=== PATIENT | female | born 1995 | race Caucasian/White ===

== ENCOUNTER → 2016-11-19 | Outpatient (CLI) | payer OTHER ==
--- NOTE | 2016-11-19 09:55 | RAD ---
Examination: 2 views of the bilateral hips with frontal view of the pelvis History: History of bilateral hip pain, prior history of surgery Comparison: None available Findings: The bilateral femoral heads are within the acetabula. Mild joint space loss identified in the bilateral hip joints likely degeneration. Small bony density identified just superior to the right acetabulum probably soft tissue calcification likely chronic. Intrauterine contraceptive device projects in the pelvis Impression: 1. Mild degenerative changes bilateral hip joints. 2. Small bony density identified just superior to the right acetabulum probably soft tissue calcification likely chronic. If pain persists MRI may be useful.
== END | disposition home or self-care (01) ==
LOC: DXRADRC 09:10
PROVIDERS: ATTEND Orthopaedic Surgery Sports Medicine
DX: M16.0 Bilateral primary osteoarthritis of hip (principal); Z97.5 Presence of (intrauterine) contraceptive device
CPT/HCPCS: 73521

== ENCOUNTER 2017-01-07 20:32 | Emergency (ER) | payer OTHER ==
[~2017-01-07] VITALS: Ht 177.8 cm; Wt 77.1 kg
[2017-01-07 21:00] VITALS: BP 127/79
[2017-01-07] MEDS ORDERED: ONDANSETRON PF 4 MG/2 ML VIAL. ONE (23:11)
[2017-01-07] MEDS ORDERED: KETOROLAC 30 MG/ML VIAL. ONE (23:11)
[2017-01-07 23:41] LABS: BACTERIA,URINE 0 /HPF (0-FEW); BILIRUBIN,URINE NEG (NEG); CLARITY,URINE CLEAR; COLOR,URINE YELLOW; GLUCOSE,URINE NEG (NEG); NITRITE,URINE NEG (NEG); RBC,URINE 0 /HPF (0-2); SQUAMOUS EPITHELIAL CELL,UR OCC /LPF; UROBILINOGEN,URINE 0.2 mg/dL (0.2 mg/dL); WBC,URINE RARE /HPF (0-4)
[2017-01-07] MEDS ORDERED: ONDANSETRON ODT 4 MG TAB.RAPDIS PO ONE (23:45)
[2017-01-07] MEDS ORDERED: KETOROLAC 60 MG/2 ML VIAL. IM ONE (23:45)
--- NOTE | 2017-01-07 23:46 | RAD ---
Pelvic ultrasound 01/07/2017 INDICATION: Pelvic pain and bleeding for one month. COMPARISON: None available TECHNIQUE: Multiple sonographic images of the pelvis were obtained utilizing transabdominal and transvaginal imaging. Grayscale, color Doppler and spectral waveform analysis were utilized. FINDINGS: The uterus measures 9.5 x 4.9 x 3.9 cm. No suspicious uterine masses are identified. Endometrium is within normal limits measuring 3.5 mm. IUD is present. Right ovary measures 4.2 x 2.1 x 2.5 cm. Normal follicular changes are present. There is arterial and venous waveform identified within the right ovary at the time of imaging. The left ovary measures 4.5 x 2.7 x 2.7 cm. Normal follicular changes are present. Arterial and venous waveform identified within the left ovary at the time of imaging. There is no free fluid within the pelvis. IMPRESSION: Nonenlarged ovaries with perfusion identified bilaterally. Uterus is within normal limits with an IUD present. Electronically signed by: Aby Pickard MD (01/07/2017 11:43 PM) [facility]
[2017-01-08 00:03] LABS: BASO # 0.1 x10^3/uL (0.0-0.2); BASO % 1 % (0-3); EOS # 0.2 x10^3/uL (0.0-0.7); EOS % 2 % (0-3); HEMATOCRIT 41.1 % (36.0-47.0); HEMOGLOBIN 14.2 g/dL (12.0-15.5); LYMPH % 42 % (24-48); MEAN CORPUSCULAR HEMOGLOBIN 31 pg (25-35); MEAN CORPUSCULAR HGB CONC 35 g/dL (31-37); MEAN CORPUSCULAR VOLUME 90 fL (79-100); MONO # 0.7 x10^3/uL (0.0-1.1); MONO % 8 % (0-9); NEUT # 4.5 x10^3uL (1.8-7.7); NEUT % 48 % (31-73); PLATELET COUNT 229 x10^3/uL (140-400); RED BLOOD COUNT 4.58 x10^6/uL (3.50-5.40); RED CELL DISTRIBUTION WIDTH 12.8 % (11.5-14.5); WHITE BLOOD COUNT 9.5 x10^3/uL (4.0-11.0)
[2017-01-08 00:17] LABS: ALBUMIN 3.9 g/dL (3.4-5.0); CALCIUM 9.1 mg/dL (8.5-10.1); CREATININE 0.9 mg/dL (0.6-1.0); GFR 77.6; POTASSIUM 4.3 mmol/L (3.5-5.1); TOTAL BILIRUBIN 0.5 mg/dL (0.2-1.0); TOTAL PROTEIN 7.9 g/dL (6.4-8.2)
[2017-01-08] MEDS ORDERED: KETOROLAC 30 MG/ML VIAL. IV ONE (00:45)
[2017-01-08] MEDS ORDERED: ONDANSETRON PF 4 MG/2 ML VIAL. IV ONE (00:45)
[2017-01-08] MEDS ORDERED: ONDA4TAB10 SL (00:50)
[2017-01-08] MEDS ORDERED: IBUP800T19 PO (00:50)
--- NOTE | 2017-01-08 00:50 | PHYS DOC ---
Adult General Chief Complaint Chief Complaint: ABDOMINAL PAIN HPI HPI Patient is a 21 year old female who presents with vaginal bleeding. The patient reports bleeding for nearly 1 month. States she uses tampons, sometimes changing hourly. She reports cramping lower abdominal pain. She denies fevers/chills, nausea/vomiting, diarrhea, dysuria, vaginal discharge. Denies shortness of breath, lightheadedness, syncope. She reports history of irregular periods & heavy bleeding, has mirena IUD but has not helped with bleeding. She was referred to a personal lines agent but does not have an appointment yet. Review of Systems Review of Systems Constitutional: Denies fever or chills HENT: Denies nasal congestion or sore throat Respiratory: Denies cough or shortness of breath Cardiovascular: Denies chest pain GI: Denies abdominal pain, nausea, vomiting : Reports vaginal bleeding. Musculoskeletal: Denies back pain or joint pain Integument: Denies rash Neurologic: Denies headache All other systems were reviewed and found to be within normal limits, except as documented in this note. Current Medications Current Medications Current Medications Medications (Trade) Dose Ordered Sig/Vito Start Time Stop Time Status Last Admin Dose Admin Ketorolac Tromethamine (Toradol) 30 mg 1X ONCE 01/08/17 00:45 01/08/17 00:46 UNV 01/07/17 23:50 30 MG Ondansetron HCl (Zofran Odt) 4 mg 1X ONCE 01/07/17 23:45 01/08/17 00:42 DC Ondansetron HCl (Zofran) 4 mg 1X ONCE 01/08/17 00:45 01/08/17 00:46 UNV 01/07/17 23:50 4 MG Allergies Allergies Allergies Coded Allergies Type Severity Reaction Last Updated Verified Penicillins Allergy Unknown 01/07/17 Yes Physical Exam Physical Exam Constitutional: Well developed, well nourished, no acute distress, non-toxic appearance. HENT: Normocephalic, atraumatic, bilateral external ears normal, oropharynx moist, nose normal. Eyes: conjunctiva normal, no discharge. Cardiovascular: RRR, no murmurs, no edema. Lungs & Thorax: LCTAB, no wheezing, no respiratory distress. Abdomen: soft, bilateral lower quadrant abdominal tenderness without rebound/ guarding, no masses/pulsatile masses, nondistended. Skin: Warm, dry, no erythema, no rash. Back: No CVA tenderness. Extremities: No tenderness, no edema. Neurologic: Alert and oriented X 3 Current Patient Data Lab Results Laboratory Tests Test 01/07/17 23:15 01/07/17 23:40 01/08/17 00:31 Urine Collection Type Unknown Urine Color Yellow Urine Clarity Clear Urine pH 7.0 Urine Specific [place] 1.020 Urine Protein Neg (NEG-TRACE) Urine Glucose (UA) Neg mg/dL (NEG) Urine Ketones (Stick) Trace mg/dL (NEG) Urine Blood Neg (NEG) Urine Nitrite Neg (NEG) Urine Bilirubin Neg (NEG) Urine Urobilinogen Dipstick 0.2 mg/dL (0.2 mg/dL) Urine Leukocyte Esterase Neg (NEG) Urine RBC 0 /HPF (0-2) Urine WBC Rare /HPF (0-4) Urine Squamous Epithelial Cells Occ /LPF Urine Bacteria 0 /HPF (0-FEW) White Blood Count 9.5 x10^3/uL (4.0-11.0) Red Blood Count 4.58 x10^6/uL (3.50-5.40) Hemoglobin 14.2 g/dL (12.0-15.5) Hematocrit 41.1 % (36.0-47.0) Mean Corpuscular Volume 90 fL (79-100) Mean Corpuscular Hemoglobin 31 pg (25-35) Mean Corpuscular Hemoglobin Concent 35 g/dL (31-37) Red Cell Distribution Width 12.8 % (11.5-14.5) Platelet Count 229 x10^3/uL (140-400) Neutrophils (%) (Auto) 48 % (31-73) Lymphocytes (%) (Auto) 42 % (24-48) Monocytes (%) (Auto) 8 % (0-9) Eosinophils (%) (Auto) 2 % (0-3) Basophils (%) (Auto) 1 % (0-3) Neutrophils # (Auto) 4.5 x10^3uL (1.8-7.7) Lymphocytes # (Auto) 4.0 x10^3/uL (1.0-4.8) Monocytes # (Auto) 0.7 x10^3/uL (0.0-1.1) Eosinophils # (Auto) 0.2 x10^3/uL (0.0-0.7) Basophils # (Auto) 0.1 x10^3/uL (0.0-0.2) Sodium Level 140 mmol/L (136-145) Potassium Level 4.3 mmol/L (3.5-5.1) Chloride Level 103 mmol/L (98-107) Carbon Dioxide Level 29 mmol/L (21-32) Anion Gap 8 (6-14) Blood Urea Nitrogen 15 mg/dL (7-20) Creatinine 0.9 mg/dL (0.6-1.0) Estimated GFR (Cockcroft-Gault) 77.6 BUN/Creatinine Ratio 17 (6-20) Glucose Level 79 mg/dL (70-99) Calcium Level 9.1 mg/dL (8.5-10.1) Total Bilirubin 0.5 mg/dL (0.2-1.0) Aspartate Amino Transferase (AST) 19 U/L (15-37) Alanine Aminotransferase (ALT) 24 U/L (14-59) Alkaline Phosphatase 67 U/L (46-116) Total Protein 7.9 g/dL (6.4-8.2) Albumin 3.9 g/dL (3.4-5.0) Albumin/Globulin Ratio 1.0 (1.0-1.7) POC Urine HCG, Qualitative hcg negative (Negative) EKG EKG [] Radiology/Procedures Radiology/Procedures PROCEDURE: US PELVIS W/TV Pelvic ultrasound 01/07/2017 INDICATION: Pelvic pain and bleeding for one month. COMPARISON: None available TECHNIQUE: Multiple sonographic images of the pelvis were obtained utilizing transabdominal and transvaginal imaging. Grayscale, color Doppler and spectral waveform analysis were utilized. FINDINGS: The uterus measures 9.5 x 4.9 x 3.9 cm. No suspicious uterine masses are identified. Endometrium is within normal limits measuring 3.5 mm. IUD is present. Right ovary measures 4.2 x 2.1 x 2.5 cm. Normal follicular changes are present. There is arterial and venous waveform identified within the right ovary at the time of imaging. The left ovary measures 4.5 x 2.7 x 2.7 cm. Normal follicular changes are present. Arterial and venous waveform identified within the left ovary at the time of imaging. There is no free fluid within the pelvis. IMPRESSION: Nonenlarged ovaries with perfusion identified bilaterally. Uterus is within normal limits with an IUD present. Electronically signed by: Seamus Gray MD (01/07/2017 11:43 PM) [facility] DICTATED AND SIGNED BY: SEAMUS GRAY MD DATE: 01/07/17 9140[] Course & Med Decision Making Course & Med Decision Making Pertinent Labs and Imaging studies reviewed. (See chart for details) The patient presents with abdominal pain & vaginal bleeding. Gave pain medication. Vitals stable, hemoglobin within normal limits, HCG negative. Pelvic ultrasound with no acute abnormality. Planned to perform pelvic exam but patient's care was delayed while nurse cared for other ill patients. Ultimately patient declined pelvic exam & needed to leave. Recommend rest, hydration, ibuprofen for pain, zofran for nausea. Follow up with Dr. Montes or other personal lines agent in 2-3 days. Come back for high fever, severe pain, uncontrolled vomiting, heavy bleeding requiring greater than 1 pad per hour, any otherwise worsening condition. Discharged home in stable condition. [] Dragon Disclaimer Dragon Disclaimer This electronic medical record was generated, in whole or in part, using a voice recognition dictation system. Departure Departure: Impression: Primary Impression: Menometrorrhagia Disposition: HOME, SELF-CARE Condition: STABLE Referrals: ALEXANDRO JOHNSON DO, [facility] (PCP) Patient Instructions: Menorrhagia, [id number] Additional Instructions: You were seen in the emergency department today for vaginal bleeding. Your hemoglobin & vital signs were normal, & your ultrasound did not show any serious abnormality. Please rest, drink fluids, take ibuprofen for pain & zofran for nausea. Call Dr. Montes or the personal lines agent of your choice for an appointment in 2-3 days. Come back for high fever, severe pain, uncontrolled vomiting, bleeding requiring greater than 1 pad per hour, any otherwise worsening condition. Scripts Ondansetron (ZOFRAN ODT) 4 Mg Tab.rapdis 1 TAB SL Q8HRS, #10 TAB Prov: CHUCK HANLEY MD 01/08/17 Ibuprofen (IBUPROFEN) 800 Mg Tablet 1 TAB PO TID Y for PAIN, #20 TAB Prov: CHUCK HANLEY MD 01/08/17 CHUCK HANLEY MD Jan 08, 2017 00:50
== END 2017-01-08 01:00 | disposition home or self-care (01) ==
LOC: ER 20:32
DX: N92.1 Excessive and frequent menstruation with irregular cycle (principal); Z88.0 Allergy status to penicillin
CPT/HCPCS: 36415; 76830; 76856; 80053; 81001; 81025; 85025; 96374; 96375; 99285; J1885; J2405

== ENCOUNTER 2017-04-20 23:42 | Emergency (ER) | payer OTHER ==
[~2017-04-20] VITALS: Ht 177.8 cm; Wt 77.1 kg
[~2017-04-20 23:42] MED LIST: IBUP800T19 PO; ONDA4TAB10 SL
--- NOTE | 2017-04-20 23:45 | ED.ADGEN ---
Past History Past Medical History: Endometriosis Past Surgical History: Appendectomy, Tonsillectomy Alcohol Use: Occasionally Drug Use: None Adult General Chief Complaint Chief Complaint " I got a really sore throat.. last couple days... and now it feels like it swelling on outside...I used to get a lot of strep.. but I had my tonsils out.... and almost never get a sore throat now..." HPI HPI Patient is a 21 year old female who presents with pharyngitis and complaints of breast mass. Patient has injected pharynx with anterior chain adenopathy. Patient has an area of 8 x 4 cm on left breast appears to be injected and cellulitis-like pattern. No axillary adenopathy. History of trauma. No history immunosuppression. Does have a history of frequent strep infections in the past. No recent travel or specific ill contacts. No trauma. Hx. breast Implants, and nipple studs 1 1/2 yrs ago. Pt. states she cleans the studs daily. Review of Systems Review of Systems Constitutional: Checked a history of fever or chills [] Eyes: Denies change in visual acuity, redness, or eye pain [] HENT: Denies nasal congestion . Complaints of sore throat [] Respiratory: Denies cough or shortness of breath []complaints of right breast tenderness and mass. Cardiovascular: No additional information not addressed in HPI [] GI: Denies abdominal pain, nausea, vomiting, bloody stools or diarrhea [] : Denies dysuria or hematuria [] Musculoskeletal: Denies back pain or joint pain [] Integument: Denies rash or skin lesions [] Neurologic: Denies headache, focal weakness or sensory changes [] Endocrine: Denies polyuria or polydipsia [] All other systems were reviewed and found to be within normal limits, except as documented in this note. Family History Family History Noncontributory Current Medications Current Medications Current Medications Medications (Trade) Dose Ordered Sig/Vito Start Time Stop Time Status Last Admin Dose Admin Diphenhydramine HCl (Benadryl) 50 mg 1X ONCE 04/21/17 00:15 04/21/17 00:16 DC 04/21/17 00:16 50 MG Oxycodone/ Acetaminophen (Percocet 5/325) 2 tab 1X ONCE 04/21/17 00:15 04/21/17 00:16 DC 2/28/18 00:15 2 TAB Prednisone (Prednisone) 60 mg 1X ONCE 04/21/17 00:15 04/21/17 00:16 DC 04/21/17 00:15 60 MG Trimethoprim/ Sulfamethoxazole (Bactrim Ds) 1 tab 1X ONCE 04/21/17 01:00 04/21/17 01:13 DC 04/21/17 01:20 1 TAB See nursing for home meds Allergies Allergies Allergies Coded Allergies Type Severity Reaction Last Updated Verified Penicillins Allergy Unknown 01/07/17 Yes Physical Exam Physical Exam Constitutional: Well developed, well nourished, moderately acute distress, non- toxic appearance. [] HENT: Normocephalic, atraumatic, bilateral external ears normal, oropharynx moist, ejected pharynx, no oral exudates, nose normal. [] Eyes: PERRLA, EOMI, conjunctiva normal, no discharge. [] Neck: Normal range of motion, anterior cervical chain adenopathy and tenderness , supple, no stridor. [] Cardiovascular:Heart rate regular rhythm, no murmur [] Lungs & Thorax: Bilateral breath sounds clear to auscultation []Has a dumbbell studs of breast nipples. Scars from breast implants. Area of 8 x 4 cm cellulitis Rt breast. No axillary adenopathy. Abdomen: Bowel sounds normal, soft, no tenderness, no masses, no pulsatile masses. [] Skin: Warm, dry, no erythema, no rash. [] Back: No tenderness, no CVA tenderness. [] Extremities: No tenderness, no cyanosis, no clubbing, ROM intact, no edema. [] Neurologic: Alert and oriented X 3, normal motor function, normal sensory function, no focal deficits noted. [] Psychologic: Affect normal, judgement normal, mood normal. [] Current Patient Data Vital Signs Vital Signs Date Time Temp Pulse Resp B/P (MAP) Pulse Ox O2 Delivery O2 Flow Rate FiO2 04/21/17 01:20 75 16 128/79 (95) 100 Room Air 04/20/17 23:42 98.0 Lab Results Laboratory Tests Test 04/20/17 23:51 Influenza Type A (Rapid) Negative (NEGATIVE) Influenza Type B (Rapid) Negative (NEGATIVE) Group A Streptococcus Rapid Negative (NEGATIVE) EKG EKG [] Radiology/Procedures Radiology/Procedures [] Course & Med Decision Making Course & Med Decision Making Pertinent Labs and Imaging studies reviewed. (See chart for details) Take Bactrim DS twice a day. Take tylenol and ibuprofen for pain. Moist heat packs. Must follow up. Recommend removal of nipple stud until cellulitis clears. Warned cellulitis may be the first signs of breast cancer- so follow- up is a must. []For severe breast pain not relieved by Tylenol and ibuprofen may take Vicoprofen. Final Impression Final Impression 1. Pharyngitis[] Strep. 2. Rt breast Cellulitis Problems: Dragon Disclaimer Dragon Disclaimer This electronic medical record was generated, in whole or in part, using a voice recognition dictation system. MELISSA PRIEST MD Apr 20, 2017 23:45
[2017-04-21] MEDS: predniSONE 20 MG TABLET PO ONE (00:15)
[2017-04-21] MEDS: oxyCODONE/APAP 5/325 1 TAB TABLET PO ONE (00:15)
[2017-04-21] MEDS: diphenhydrAMINE HCL 25 MG CAPSULE PO ONE (00:16)
[2017-04-21 00:25] LABS: INFLUENZA A PATIENT NEGATIVE (NEGATIVE); INFLUENZA B PATIENT NEGATIVE (NEGATIVE)
[2017-04-21] MEDS ORDERED: SULF1TAB24 PO (00:35)
[2017-04-21] MEDS ORDERED: HYDR-79 PO (00:35)
[2017-04-21 01:20] VITALS: BP 128/79
[2017-04-21] MEDS: SMZ/TMP 800/160MG TABLET. PO ONE (01:20)
== END 2017-04-21 01:22 | disposition home or self-care (01) ==
LOC: ER 23:42
DX: J02.0 Streptococcal pharyngitis (principal); N61.0 Mastitis without abscess; Z88.0 Allergy status to penicillin
CPT/HCPCS: 87070; 87804; 87880; 99284; J7512; Q0163